=== PATIENT | male | born 1945 | race Caucasian/White ===

== ENCOUNTER 2021-06-14 14:38 | Inpatient (IN) ==
[2021-06-14 15:27] LABS: Eosinophils # 0.3 10*3/uL (0.0-0.87); Eosinophils % 3.4 % (0.00-10.9); Hemoglobin 10.5 GM/DL (14.0-18.0); Immature Granulocytes % 0.5 %; Immature Granulocytes Absolute 0.04 #; Lymphocytes # 0.5 10*3/uL (1.4-4.0); Lymphocytes % 6.4 % (21.2-54.2); Mean Corpuscular HGB Conc 31.8 GM/DL (32-36); Mean Corpuscular Volume 101.5 FL (87-102); Mean Platelet Volume 8.6 FL (9.6-12.0); Neutrophils % 83.7 % (38.7-73.9); Platelet Count 278 T/CUMM (130-400); Red Blood Count 3.25 MC/CUMM (3.8-5.5); Red Cell Distribution Width 14.7 % (9.3-17.3); White Blood Count 7.8 T/CUMM (4-12)
[2021-06-14 16:48] LABS: Alanine Aminotransferase 26 U/L (16-61); Albumin 2.5 G/DL (3.4-5.0); Alkaline Phosphatase 159 U/L (45-117); Aspartate Amino Transferase 35 U/L (0-37); Bilirubin,Total < 0.39 MG/DL (0.20-1.00); Blood Urea Nitrogen 71 MG/DL (7-18); Calcium 8.8 MG/DL (8.5-10.1); Carbon Dioxide 25 MMOL/L (21-32); Estimated Glom Filtration Rate 33 ML/MIN; Glucose 116 MG/DL (74-106); Osmolality,Calculated 287.4 MOS/KG (273-304); Potassium 5.9 MMOL/L (3.5-5.1); Sodium 133 MMOL/L (136-145); Total Protein 6.4 G/DL (6.4-8.2)
[2021-06-14] MEDS ORDERED: SODIUM CHLORIDE 0.9% 1,000 ML IV STA ×2 (17:33→18:42)
[2021-06-14] MEDS ORDERED: GLUCAGON 1 MG VIAL IM PRN (19:27)
[2021-06-14] MEDS ORDERED: SODIUM CHLORIDE 0.9% 1,000 ML IV SCH (19:30)
[2021-06-14] MEDS ORDERED: DEXTROSE 10% 250 ML BAG IV PRN (19:52)
[2021-06-14 20:25] LABS: Bilirubin,Urine Negative (Negative); Blood, Urine Negative (Negative); Glucose,Urine (UA) Negative (Negative); Ketones,Urine 5 mg/dL (Negative); Mucus,Urine Occasional /LPF (Occasional); Nitrite,Urine Negative (Negative); Protein,Urine Negative; RBC,Urine 1 /HPF (0-4); Urine Appearance CLOUDY (Clear); Urine Color Amber (Yellow); Urine Specific Gravity 1.013 (1.001-1.035); Urine Urobilinogen < 2.0 EU/DL (<2.0)
[2021-06-14 20:48] LABS: Calcium 8.8 MG/DL (8.5-10.1); Osmolality,Calculated 290.1 MOS/KG (273-304); Potassium 5.6 MMOL/L (3.5-5.1)
[2021-06-14] MEDS ORDERED: SODIUM POLYSTYRENE SULFATE 15 GM/60 ML BOTTLE PO ONE (21:18)
[2021-06-14] MEDS: APIXABAN 2.5 MG TABLET PO SCH (22:00)
[2021-06-15 05:46] LABS: Basophils % 0.2 % (0.0-0.8); Eosinophils # 0.3 10*3/uL (0.0-0.87); Eosinophils % 4.1 % (0.00-10.9); Hematocrit 31.2 VOL% (42.0-52.0); Hemoglobin 9.9 GM/DL (14.0-18.0); Immature Granulocytes % 0.6 %; Immature Granulocytes Absolute 0.04 #; Lymphocytes # 0.5 10*3/uL (1.4-4.0); Lymphocytes % 7.1 % (21.2-54.2); Mean Corpuscular HGB Conc 31.7 GM/DL (32-36); Mean Platelet Volume 8.9 FL (9.6-12.0); Monocytes % 6.8 % (1.7-12.7); NRBC # 0.02 10*3/uL; Neutrophils % 81.2 % (38.7-73.9); Platelet Count 264 T/CUMM (130-400); Red Blood Count 3.06 MC/CUMM (3.8-5.5); Red Cell Distribution Width 14.6 % (9.3-17.3); White Blood Count 6.5 T/CUMM (4-12)
[2021-06-15 06:04] LABS: Folate 20.88 NG/ML (5.38-24.0)
[2021-06-15 06:10] LABS: % Iron Saturation 11.2 % (18-50); Ferritin 121.9 ng/mL (26-388)
[2021-06-15 06:17] LABS: Alanine Aminotransferase 38 U/L (16-61); Alkaline Phosphatase 142 U/L (45-117); Aspartate Amino Transferase 30 U/L (0-37); Bilirubin,Total < 0.39 MG/DL (0.20-1.00); Blood Urea Nitrogen 54 MG/DL (7-18); Calcium 8.5 MG/DL (8.5-10.1); Carbon Dioxide 25 MMOL/L (21-32); Estimated Glom Filtration Rate 49 ML/MIN; Glucose 85 MG/DL (74-106); Osmolality,Calculated 288.7 MOS/KG (273-304); Potassium 5.2 MMOL/L (3.5-5.1); Sodium 138 MMOL/L (136-145)
[2021-06-15 06:31] LABS: Anisocytosis Slight; Platelet Estimate Normal
[2021-06-15 06:32] LABS: Macrocytosis 1+
[2021-06-15] MEDS ORDERED: SODIUM POLYSTYRENE SULFATE 15 GM/60 ML BOTTLE PO ONE (08:50)
[2021-06-15] MEDS: APIXABAN 2.5 MG TABLET PO SCH ×2 (10:53→20:58)
[2021-06-15] MEDS: SODIUM CHLORIDE 0.9% 1,000 ML IV SCH (10:56)
[2021-06-15 14:25] LABS: Calcium 8.6 MG/DL (8.5-10.1); Osmolality,Calculated 289.4 MOS/KG (273-304); Potassium 4.7 MMOL/L (3.5-5.1)
[2021-06-16] MEDS: SODIUM CHLORIDE 0.9% 1,000 ML IV SCH (05:41)
[2021-06-16 07:19] LABS: Eosinophils # 0.3 10*3/uL (0.0-0.87); Eosinophils % 5.7 % (0.00-10.9); Hematocrit 32.6 VOL% (42.0-52.0); Hemoglobin 10.4 GM/DL (14.0-18.0); Immature Granulocytes % 0.4 %; Immature Granulocytes Absolute 0.02 #; Lymphocytes # 0.6 10*3/uL (1.4-4.0); Lymphocytes % 11.3 % (21.2-54.2); Mean Corpuscular HGB Conc 31.9 GM/DL (32-36); Mean Corpuscular Volume 103.5 FL (87-102); Mean Platelet Volume 8.9 FL (9.6-12.0); Monocytes % 8.3 % (1.7-12.7); Neutrophils % 74.3 % (38.7-73.9); Platelet Count 269 T/CUMM (130-400); Red Blood Count 3.15 MC/CUMM (3.8-5.5); Red Cell Distribution Width 14.6 % (9.3-17.3); White Blood Count 5.3 T/CUMM (4-12)
[2021-06-16 07:53] LABS: Calcium 8.8 MG/DL (8.5-10.1); Osmolality,Calculated 286.3 MOS/KG (273-304); Potassium 3.9 MMOL/L (3.5-5.1)
[2021-06-16] MEDS: APIXABAN 2.5 MG TABLET PO SCH ×2 (08:32→21:35)
[2021-06-16] MEDS: lamoTRIgine 100 MG TABLET PO SCH (08:32)
[2021-06-16] MEDS ORDERED: DEXTROSE 50% 25 GM/50 ML VIAL IV PRN (08:47)
[2021-06-16] MEDS ORDERED: FERRIC GLUCONATE COMPLEX 125 MG in SODIUM CHLORIDE 0.9% 100 ML IV ONE (09:30)
[2021-06-16] MEDS: CARBIDOPA/LEVODOPA 25-250 MG TABLET PO SCH ×3 (14:57→21:35)
[2021-06-16] MEDS: DEXTROSE 5% NACL 0.45% 1,000 ML IV SCH (16:16)
[2021-06-16 18:29] LABS: Bacteria,Urine Occasional /HPF (Few); Bilirubin,Urine Negative (Negative); Blood, Urine Negative (Negative); Glucose,Urine (UA) Negative (Negative); Ketones,Urine 5 mg/dL (Negative); Mucus,Urine Occasional /LPF (Occasional); Nitrite,Urine Negative (Negative); Protein,Urine Negative; RBC,Urine 9 /HPF (0-4); Urine Appearance CLEAR (Clear); Urine Color Yellow (Yellow); Urine Specific Gravity 1.013 (1.001-1.035); Urine Urobilinogen < 2.0 EU/DL (<2.0)
[2021-06-16] MEDS ORDERED: ATORVASTATIN 20 MG TABLET PO SCH (21:00)
[2021-06-16] MEDS: PANTOPRAZOLE 40 MG TABLET PO SCH (21:35)
[2021-06-17 05:38] LABS: Eosinophils # 0.2 10*3/uL (0.0-0.87); Eosinophils % 4.3 % (0.00-10.9); Hematocrit 31.3 VOL% (42.0-52.0); Hemoglobin 10.1 GM/DL (14.0-18.0); Immature Granulocytes % 0.7 %; Immature Granulocytes Absolute 0.04 #; Lymphocytes # 0.6 10*3/uL (1.4-4.0); Lymphocytes % 10.4 % (21.2-54.2); Mean Corpuscular HGB Conc 32.3 GM/DL (32-36); Mean Corpuscular Volume 101.3 FL (87-102); Mean Platelet Volume 8.7 FL (9.6-12.0); Monocytes % 10.3 % (1.7-12.7); Neutrophils % 74.3 % (38.7-73.9); Platelet Count 268 T/CUMM (130-400); Red Blood Count 3.09 MC/CUMM (3.8-5.5); Red Cell Distribution Width 14.2 % (9.3-17.3); White Blood Count 5.4 T/CUMM (4-12)
[2021-06-17 05:54] LABS: Calcium 8.5 MG/DL (8.5-10.1); Osmolality,Calculated 282.7 MOS/KG (273-304); Potassium 3.7 MMOL/L (3.5-5.1)
[2021-06-17] MEDS: DEXTROSE 5% NACL 0.45% 1,000 ML IV SCH (09:00)
[2021-06-17] MEDS: lamoTRIgine 100 MG TABLET PO SCH (09:00)
[2021-06-17] MEDS: CARBIDOPA/LEVODOPA 25-250 MG TABLET PO SCH ×3 (09:00→18:26)
[2021-06-17] MEDS: PANTOPRAZOLE 40 MG TABLET PO SCH ×2 (09:00→21:16)
[2021-06-17] MEDS: APIXABAN 2.5 MG TABLET PO SCH ×2 (09:00→21:16)
[2021-06-17] MEDS ORDERED: ASPIRIN EC 81 MG TABLET PO SCH (09:00)
[2021-06-17] MEDS ORDERED: PANTOPRAZOLE 40 MG TABLET PO SCH (13:01)
[2021-06-17] MEDS ORDERED: ATORVASTATIN 20 MG TABLET PO SCH (21:00)
[2021-06-17] MEDS: CARBIDOPA/LEVODOPA 25-100 MG TABLET PO SCH (21:15)
[2021-06-17] MEDS: buPROPion SR 100 MG TABLET PO SCH (21:15)
[2021-06-17] MEDS: FERROUS SULFATE 300 MG/5 ML UDCUP PEG SCH (21:15)
[2021-06-17] MEDS: rOPINIRole 0.25 MG TABLET PO SCH (21:16)
[2021-06-18 05:57] LABS: Eosinophils # 0.3 10*3/uL (0.0-0.87); Eosinophils % 5.3 % (0.00-10.9); Hematocrit 30.7 VOL% (42.0-52.0); Immature Granulocytes % 0.4 %; Immature Granulocytes Absolute 0.02 #; Lymphocytes # 0.7 10*3/uL (1.4-4.0); Lymphocytes % 15.1 % (21.2-54.2); Mean Corpuscular HGB Conc 32.6 GM/DL (32-36); Mean Corpuscular Volume 99.4 FL (87-102); Mean Platelet Volume 8.5 FL (9.6-12.0); Monocytes % 8.6 % (1.7-12.7); Neutrophils % 70.6 % (38.7-73.9); Platelet Count 255 T/CUMM (130-400); Red Blood Count 3.09 MC/CUMM (3.8-5.5); Red Cell Distribution Width 14.2 % (9.3-17.3); White Blood Count 4.9 T/CUMM (4-12)
[2021-06-18 06:29] LABS: Calcium 8.2 MG/DL (8.5-10.1); Osmolality,Calculated 285.3 MOS/KG (273-304); Potassium 3.7 MMOL/L (3.5-5.1)
[2021-06-18] MEDS ORDERED: MAGNESIUM SULF RIDER 2 GM/50 ML PREMIX IV ONE (08:13)
[2021-06-18] MEDS ORDERED: LAMOTRIGINE 200 MG PO SCH (09:00)
[2021-06-18] MEDS ORDERED: CHOLECALCIFEROL 5,000 UNIT TABLET PO SCH (09:00)
[2021-06-18] MEDS ORDERED: ARIPiprazole 15 MG TABLET PO SCH (09:00)
[2021-06-18] MEDS ORDERED: MULTIVITAMIN (BEROCCA) TABLET PO SCH (09:00)
[2021-06-18] MEDS ORDERED: ASPIRIN EC 81 MG TABLET PO SCH (09:00)
[2021-06-18] MEDS: buPROPion SR 100 MG TABLET PO SCH (09:09)
[2021-06-18] MEDS: FERROUS SULFATE 300 MG/5 ML UDCUP PEG SCH (09:09)
[2021-06-18] MEDS: lamoTRIgine 100 MG TABLET PO SCH (09:09)
[2021-06-18] MEDS: rOPINIRole 0.25 MG TABLET PO SCH (09:10)
[2021-06-18] MEDS: PANTOPRAZOLE 40 MG TABLET PO SCH (09:10)
[2021-06-18] MEDS: APIXABAN 2.5 MG TABLET PO SCH (09:10)
[2021-06-18] MEDS: CARBIDOPA/LEVODOPA 25-100 MG TABLET PO SCH ×2 (09:10→13:43)
[2021-06-18] MEDS: DEXTROSE 5% NACL 0.45% 1,000 ML IV SCH (09:11)
[2021-06-18 12:24] VITALS: BP 102/65
== END 2021-06-18 14:38 | disposition swing bed (61) | DRG 683 ==
LOC: N.ED 14:38 → N.5E 14:38
PROVIDERS: ADMIT Internal Medicine; ATTEND Internal Medicine

== ENCOUNTER 2021-10-04 08:41 | Inpatient (IN) ==
[2021-10-04] MEDS ORDERED: SODIUM CHLORIDE 0.9% 1,000 ML IV STA (09:26)
[2021-10-04] MEDS ORDERED: PIPERACILLIN/TAZOBACTAM 3,375 MG in SODIUM CHLORIDE 0.9% 100 ML IV STA (09:28)
[2021-10-04 09:59] LABS: Basophils % 0.1 % (0.0-0.8); Eosinophils # 0.1 10*3/uL (0.0-0.87); Eosinophils % 0.5 % (0.00-10.9); Hematocrit 41.7 VOL% (42.0-52.0); Hemoglobin 13.7 GM/DL (14.0-18.0); Immature Granulocytes % 0.5 %; Immature Granulocytes Absolute 0.06 #; Lymphocytes # 0.4 10*3/uL (1.4-4.0); Lymphocytes % 2.9 % (21.2-54.2); Mean Corpuscular HGB Conc 32.9 GM/DL (32-36); Mean Corpuscular Volume 98.3 FL (87-102); Mean Platelet Volume 8.5 FL (9.6-12.0); Monocytes # 0.6 10*3/uL (0.11-0.8); Monocytes % 4.5 % (1.7-12.7); Neutrophils % 91.5 % (38.7-73.9); Platelet Count 226 T/CUMM (130-400); Red Blood Count 4.24 MC/CUMM (3.8-5.5); Red Cell Distribution Width 15.2 % (9.3-17.3); White Blood Count 13.1 T/CUMM (4-12)
[2021-10-04 10:34] LABS: Bilirubin,Urine Negative (Negative); Blood, Urine Negative (Negative); Glucose,Urine (UA) Negative (Negative); Ketones,Urine Negative (Negative); Nitrite,Urine Negative (Negative); Protein,Urine Negative (Negative); Urine Appearance Clear (Clear); Urine Color Yellow (Yellow); Urine Urobilinogen 0.2 eU/dL (<2.0); Urine pH 7.5 (4.5-8.0)
[2021-10-04 10:34] LABS: Albumin 3.2 G/DL (3.4-5.0); Bilirubin,Total 0.6 MG/DL (0.20-1.00); Calcium 9.5 MG/DL (8.5-10.1); Osmolality,Calculated 276.8 MOS/KG (273-304); Potassium 4.8 MMOL/L (3.5-5.1); Total Protein 7.1 G/DL (6.4-8.2)
[2021-10-04 10:46] LABS: Bacteria,Urine Occasional /HPF (Few); Mucus,Urine Occasional /LPF (Occasional); RBC,Urine 4 /HPF (0-4)
[2021-10-04 10:47] LABS: Band Neutrophils 6 % (0-10); Lymphocytes 6 % (20-55); Microcytosis Slight; Total Cells Counted 100
[2021-10-04] MEDS ORDERED: ACETAMINOPHEN 325 MG TABLET PO PRN (11:36)
[2021-10-04] MEDS ORDERED: ONDANSETRON 4 MG/2 ML VIAL IV PRN (11:36)
[2021-10-04] MEDS ORDERED: GLUCAGON 1 MG VIAL IM PRN (11:36)
[2021-10-04] MEDS ORDERED: oxyCODONE IR 5 MG TABLET PO PRN (11:41)
[2021-10-04] MEDS ORDERED: DEXTROSE 10% 250 ML BAG IV PRN (11:44)
[2021-10-04] MEDS ORDERED: ALBUTEROL/IPRATROPIUM 3 ML NEB RESP TX PRN (11:54)
[2021-10-04 12:18] LABS: Thyroid Stimulating Hormone 1.67 uIU/ml (0.358-3.74)
[2021-10-04] MEDS: DOXYCYCLINE HYCLATE INJ 100 MG in SODIUM CHLORIDE 0.9% 100 ML IV SCH (12:41)
[2021-10-04] MEDS: LACTATED RINGERS 1,000 ML IV SCH (13:58)
[2021-10-04] MEDS: PIPERACILLIN/TAZOBACTAM 3,375 MG in SODIUM CHLORIDE 0.9% 100 ML IV SCH (18:12)
[2021-10-04] MEDS: MELATONIN 3 MG TABLET PO SCH (20:25)
[2021-10-04] MEDS: CARBIDOPA/LEVODOPA 25-100 MG TABLET PO SCH (20:25)
[2021-10-04] MEDS: ATORVASTATIN 20 MG TABLET PO SCH (20:26)
[2021-10-04] MEDS: DOCUSATE SODIUM 100 MG CAPSULE PO SCH (20:26)
[2021-10-05] MEDS: DOXYCYCLINE HYCLATE INJ 100 MG in SODIUM CHLORIDE 0.9% 100 ML IV SCH ×3 (01:26→23:57)
[2021-10-05] MEDS: CARBIDOPA/LEVODOPA 25-100 MG TABLET PO SCH ×5 (02:02→20:27)
[2021-10-05] MEDS: PIPERACILLIN/TAZOBACTAM 3,375 MG in SODIUM CHLORIDE 0.9% 100 ML IV SCH ×3 (02:29→17:11)
[2021-10-05 06:25] LABS: Basophils % 0.1 % (0.0-0.8); Eosinophils # 0.5 10*3/uL (0.0-0.87); Eosinophils % 3.9 % (0.00-10.9); Hematocrit 31.4 VOL% (42.0-52.0); Hemoglobin 10.1 GM/DL (14.0-18.0); Immature Granulocytes % 0.5 %; Immature Granulocytes Absolute 0.06 #; Lymphocytes # 0.5 10*3/uL (1.4-4.0); Lymphocytes % 4.3 % (21.2-54.2); Mean Corpuscular HGB Conc 32.2 GM/DL (32-36); Mean Platelet Volume 8.8 FL (9.6-12.0); Monocytes # 0.6 10*3/uL (0.11-0.8); Neutrophils % 86.2 % (38.7-73.9); Platelet Count 181 T/CUMM (130-400); Red Blood Count 3.11 MC/CUMM (3.8-5.5); Red Cell Distribution Width 15.2 % (9.3-17.3); White Blood Count 12.3 T/CUMM (4-12)
[2021-10-05 06:44] LABS: Osmolality,Calculated 281.4 MOS/KG (273-304); Potassium 3.8 MMOL/L (3.5-5.1)
[2021-10-05 06:45] LABS: Platelet Estimate Normal
[2021-10-05 06:46] LABS: Anisocytosis 1+; Macrocytosis Slight
[2021-10-05] MEDS: ARIPiprazole 15 MG TABLET PO SCH (09:00)
[2021-10-05] MEDS: DOCUSATE SODIUM 100 MG CAPSULE PO SCH ×2 (09:00→20:27)
[2021-10-05] MEDS ORDERED: FLUTICASONE FUROATE BOTH NARES SCH (09:00)
[2021-10-05] MEDS ORDERED: FLUoxetine 20 MG CAPSULE PO SCH (09:00)
[2021-10-05] MEDS: lamoTRIgine 100 MG TABLET PO SCH (09:00)
[2021-10-05] MEDS: POLYETHYLENE GLYCOL POWDER 17 GM PACK PO SCH (09:00)
[2021-10-05] MEDS: ASPIRIN CHEW 81 MG TABLET PO SCH (09:00)
[2021-10-05] MEDS ORDERED: [UNRECOGNIZED DRUG - MIXTURE] PO SCH (09:00)
[2021-10-05] MEDS: LACTATED RINGERS 1,000 ML IV SCH ×2 (14:21→17:25)
[2021-10-05] MEDS: ATORVASTATIN 20 MG TABLET PO SCH (20:27)
[2021-10-05] MEDS: MELATONIN 3 MG TABLET PO SCH (20:27)
[2021-10-06] MEDS: PIPERACILLIN/TAZOBACTAM 3,375 MG in SODIUM CHLORIDE 0.9% 100 ML IV SCH ×3 (02:08→17:31)
[2021-10-06] MEDS: CARBIDOPA/LEVODOPA 25-100 MG TABLET PO SCH ×4 (05:57→21:31)
[2021-10-06 06:31] LABS: Basophils % 0.2 % (0.0-0.8); Eosinophils # 0.4 10*3/uL (0.0-0.87); Eosinophils % 4.4 % (0.00-10.9); Hematocrit 32.3 VOL% (42.0-52.0); Hemoglobin 10.6 GM/DL (14.0-18.0); Immature Granulocytes % 0.3 %; Immature Granulocytes Absolute 0.03 #; Lymphocytes # 0.5 10*3/uL (1.4-4.0); Lymphocytes % 4.7 % (21.2-54.2); Mean Corpuscular HGB Conc 32.8 GM/DL (32-36); Mean Corpuscular Volume 98.8 FL (87-102); Mean Platelet Volume 8.9 FL (9.6-12.0); Monocytes # 0.6 10*3/uL (0.11-0.8); Monocytes % 6.6 % (1.7-12.7); Neutrophils % 83.8 % (38.7-73.9); Platelet Count 221 T/CUMM (130-400); Red Blood Count 3.27 MC/CUMM (3.8-5.5); Red Cell Distribution Width 14.8 % (9.3-17.3); White Blood Count 9.7 T/CUMM (4-12)
[2021-10-06 06:40] LABS: Calcium 9.1 MG/DL (8.5-10.1); Osmolality,Calculated 279.5 MOS/KG (273-304); Potassium 3.9 MMOL/L (3.5-5.1)
[2021-10-06 06:53] LABS: Anisocytosis Slight; Band Neutrophils 2 % (0-10); Eosinophils 4 % (0-10); Lymphocytes 5 % (20-55); Ovalocytes Few; Platelet Estimate Normal; Total Cells Counted 100
[2021-10-06] MEDS: ASPIRIN CHEW 81 MG TABLET PO SCH (09:30)
[2021-10-06] MEDS: DOCUSATE SODIUM 100 MG CAPSULE PO SCH ×2 (09:30→21:31)
[2021-10-06] MEDS: POLYETHYLENE GLYCOL POWDER 17 GM PACK PO SCH (09:30)
[2021-10-06] MEDS: ARIPiprazole 15 MG TABLET PO SCH (09:30)
[2021-10-06] MEDS: lamoTRIgine 100 MG TABLET PO SCH (09:30)
[2021-10-06] MEDS: LACTATED RINGERS 1,000 ML IV SCH ×2 (13:23→17:44)
[2021-10-06] MEDS: ATORVASTATIN 20 MG TABLET PO SCH (21:31)
[2021-10-06] MEDS: MELATONIN 3 MG TABLET PO SCH (21:31)
[2021-10-07] MEDS: PIPERACILLIN/TAZOBACTAM 3,375 MG in SODIUM CHLORIDE 0.9% 100 ML IV SCH ×2 (02:46→10:55)
[2021-10-07 06:17] LABS: Basophils % 0.1 % (0.0-0.8); Eosinophils # 0.4 10*3/uL (0.0-0.87); Eosinophils % 5.1 % (0.00-10.9); Hematocrit 33.2 VOL% (42.0-52.0); Hemoglobin 10.8 GM/DL (14.0-18.0); Immature Granulocytes % 0.4 %; Immature Granulocytes Absolute 0.03 #; Lymphocytes # 0.5 10*3/uL (1.4-4.0); Lymphocytes % 6.8 % (21.2-54.2); Mean Corpuscular HGB Conc 32.5 GM/DL (32-36); Mean Platelet Volume 9.1 FL (9.6-12.0); Monocytes # 0.6 10*3/uL (0.11-0.8); Monocytes % 7.8 % (1.7-12.7); Neutrophils % 79.8 % (38.7-73.9); Platelet Count 187 T/CUMM (130-400); Red Blood Count 3.32 MC/CUMM (3.8-5.5); White Blood Count 7.9 T/CUMM (4-12)
[2021-10-07] MEDS: CARBIDOPA/LEVODOPA 25-100 MG TABLET PO SCH ×2 (06:25→10:56)
[2021-10-07 06:38] LABS: Calcium 9.1 MG/DL (8.5-10.1); Osmolality,Calculated 278.5 MOS/KG (273-304); Potassium 3.8 MMOL/L (3.5-5.1)
[2021-10-07] MEDS: lamoTRIgine 100 MG TABLET PO SCH (10:56)
[2021-10-07] MEDS: POLYETHYLENE GLYCOL POWDER 17 GM PACK PO SCH (10:56)
[2021-10-07] MEDS: ARIPiprazole 15 MG TABLET PO SCH (10:57)
[2021-10-07] MEDS: DOCUSATE SODIUM 100 MG CAPSULE PO SCH (10:57)
[2021-10-07] MEDS: ASPIRIN CHEW 81 MG TABLET PO SCH (10:57)
[2021-10-07 12:05] VITALS: BP 125/65
== END 2021-10-07 13:50 | disposition home health service (06) | DRG 179 ==
LOC: N.ED 08:41 → N.EDINP 11:36 → SUATTDRO 11:36 → N.5E 12:46
PROVIDERS: ADMIT Internal Medicine; ATTEND Emergency Medicine

== ENCOUNTER 2021-10-08 16:46 | Inpatient (IN) ==
[2021-10-08] MEDS ORDERED: ONDANSETRON 4 MG/2 ML VIAL IV STA (18:15)
[2021-10-08] MEDS ORDERED: PIPERACILLIN/TAZOBACTAM 3,375 MG in SODIUM CHLORIDE 0.9% 100 ML IV STA (18:15)
[2021-10-08] MEDS ORDERED: SODIUM CHLORIDE 0.9% 500 ML IV STA (18:15)
[2021-10-08] MEDS ORDERED: ALBUTEROL/IPRATROPIUM 3 ML NEB RESP TX STA ×2 (18:15→20:35)
[2021-10-08 19:20] LABS: Eosinophils % 0.1 % (0.00-10.9); Hematocrit 35.6 VOL% (42.0-52.0); Hemoglobin 11.6 GM/DL (14.0-18.0); Immature Granulocytes % 0.4 %; Immature Granulocytes Absolute 0.03 #; Lymphocytes # 0.3 10*3/uL (1.4-4.0); Lymphocytes % 4.4 % (21.2-54.2); Mean Corpuscular HGB Conc 32.6 GM/DL (32-36); Mean Corpuscular Volume 99.2 FL (87-102); Mean Platelet Volume 8.5 FL (9.6-12.0); Monocytes # 0.2 10*3/uL (0.11-0.8); Neutrophils % 92.1 % (38.7-73.9); Platelet Count 215 T/CUMM (130-400); Red Blood Count 3.59 MC/CUMM (3.8-5.5); Red Cell Distribution Width 14.6 % (9.3-17.3); White Blood Count 6.8 T/CUMM (4-12)
[2021-10-08 19:41] LABS: Band Neutrophils 1 % (0-10); Lymphocytes 6 % (20-55)
[2021-10-08 19:42] LABS: Platelet Estimate Increased; Total Cells Counted 100
[2021-10-08 19:43] LABS: Alanine Aminotransferase 21 U/L (16-61); Albumin 2.4 G/DL (3.4-5.0); Alkaline Phosphatase 96 U/L (45-117); Aspartate Amino Transferase 15 U/L (0-37); Bilirubin,Total < 0.39 MG/DL (0.20-1.00); Blood Urea Nitrogen 20 MG/DL (7-18); Calcium 8.8 MG/DL (8.5-10.1); Carbon Dioxide 27 MMOL/L (21-32); Chloride 107 MMOL/L (98-107); Estimated Glom Filtration Rate 83 ML/MIN; Glucose 105 MG/DL (74-106); Osmolality,Calculated 277.7 MOS/KG (273-304); Potassium 4.6 MMOL/L (3.5-5.1); Sodium 138 MMOL/L (136-145); Total Protein 6.8 G/DL (6.4-8.2)
[2021-10-09] MEDS ORDERED: GLUCAGON 1 MG VIAL IM PRN (00:12)
[2021-10-09] MEDS ORDERED: diphenhydrAMINE CAP 25 MG CAPSULE PO PRN (00:12)
[2021-10-09] MEDS ORDERED: NICOTINE 21 MG/24 HR PATCH TRANSDERM PRN (00:12)
[2021-10-09] MEDS ORDERED: ONDANSETRON 4 MG/2 ML VIAL IV PRN (00:12)
[2021-10-09] MEDS ORDERED: hydrALAZINE 20 MG/1 ML VIAL IV PRN (00:12)
[2021-10-09] MEDS ORDERED: DEXTROSE 10% 250 ML BAG IV PRN (00:12)
[2021-10-09] MEDS ORDERED: ACETAMINOPHEN 325 MG TABLET PO PRN (00:12)
[2021-10-09] MEDS ORDERED: ZALEPLON 5 MG CAPSULE PO PRN (00:12)
[2021-10-09] MEDS ORDERED: guaiFENesin/DM ER 600-30 MG TABLET PO PRN (00:12)
[2021-10-09] MEDS ORDERED: DOXYCYCLINE HYCLATE INJ 100 MG in SODIUM CHLORIDE 0.9% 100 ML IV SCH (01:00)
[2021-10-09] MEDS: ALBUTEROL/IPRATROPIUM 3 ML NEB RESP TX SCH ×4 (04:40→19:40)
[2021-10-09 04:47] LABS: Basophils % 0.2 % (0.0-0.8); Eosinophils # 0.1 10*3/uL (0.0-0.87); Eosinophils % 2.8 % (0.00-10.9); Hematocrit 30.6 VOL% (42.0-52.0); Hemoglobin 9.9 GM/DL (14.0-18.0); Immature Granulocytes % 0.4 %; Immature Granulocytes Absolute 0.02 #; Lymphocytes # 0.6 10*3/uL (1.4-4.0); Mean Corpuscular HGB Conc 32.4 GM/DL (32-36); Mean Platelet Volume 8.5 FL (9.6-12.0); Monocytes # 0.4 10*3/uL (0.11-0.8); Monocytes % 8.5 % (1.7-12.7); Neutrophils % 76.1 % (38.7-73.9); Platelet Count 205 T/CUMM (130-400); Red Blood Count 3.09 MC/CUMM (3.8-5.5); Red Cell Distribution Width 14.8 % (9.3-17.3); White Blood Count 5.1 T/CUMM (4-12)
[2021-10-09 05:08] LABS: Calcium 8.6 MG/DL (8.5-10.1); Osmolality,Calculated 281.3 MOS/KG (273-304); Potassium 3.8 MMOL/L (3.5-5.1)
[2021-10-09] MEDS ORDERED: FLUoxetine 20 MG CAPSULE PO SCH (09:00)
[2021-10-09] MEDS ORDERED: ASPIRIN CHEW 81 MG TABLET PO SCH (09:00)
[2021-10-09] MEDS ORDERED: PANTOPRAZOLE 40 MG TABLET PO SCH (09:00)
[2021-10-09] MEDS ORDERED: ARIPiprazole 15 MG TABLET PO SCH (09:00)
[2021-10-09] MEDS: HEPARIN 5,000 UNIT/1 ML VIAL SUBCUT SCH ×2 (09:35→21:02)
[2021-10-09] MEDS: ARIPiprazole 15 MG TABLET PEG SCH (14:58)
[2021-10-09] MEDS: DOXYCYCLINE HYCLATE INJ 100 MG in SODIUM CHLORIDE 0.9% 100 ML IV SCH (14:59)
[2021-10-09] MEDS ORDERED: AMOXICILLIN/CLAV 875 MG TABLET PO SCH (21:00)
[2021-10-09] MEDS: ATORVASTATIN 20 MG TABLET PO SCH (21:01)
[2021-10-09] MEDS: CARBIDOPA/LEVODOPA 25-100 MG TABLET PO SCH (21:01)
[2021-10-10] MEDS: ALBUTEROL/IPRATROPIUM 3 ML NEB RESP TX SCH ×4 (00:45→19:15)
[2021-10-10] MEDS: DOXYCYCLINE HYCLATE INJ 100 MG in SODIUM CHLORIDE 0.9% 100 ML IV SCH ×2 (02:30→17:02)
[2021-10-10] MEDS ORDERED: AZITHROMYCIN 250 MG TABLET PO SCH (09:00)
[2021-10-10] MEDS: ASPIRIN CHEW 81 MG TABLET PO SCH (09:19)
[2021-10-10] MEDS: ARIPiprazole 15 MG TABLET PEG SCH (09:19)
[2021-10-10] MEDS: OMEPRAZOLE ODT 20 MG TABLET PER TUBE SCH (09:19)
[2021-10-10 09:28] LABS: Basophils % 0.1 % (0.0-0.8); Eosinophils # 0.2 10*3/uL (0.0-0.87); Eosinophils % 3.1 % (0.00-10.9); Hematocrit 32.2 VOL% (42.0-52.0); Hemoglobin 10.4 GM/DL (14.0-18.0); Immature Granulocytes % 0.5 %; Immature Granulocytes Absolute 0.04 #; Lymphocytes # 0.5 10*3/uL (1.4-4.0); Lymphocytes % 7.1 % (21.2-54.2); Mean Corpuscular HGB Conc 32.3 GM/DL (32-36); Mean Corpuscular Volume 99.4 FL (87-102); Mean Platelet Volume 8.4 FL (9.6-12.0); Monocytes # 0.5 10*3/uL (0.11-0.8); Monocytes % 6.4 % (1.7-12.7); Neutrophils % 82.8 % (38.7-73.9); Platelet Count 204 T/CUMM (130-400); Red Blood Count 3.24 MC/CUMM (3.8-5.5); Red Cell Distribution Width 14.6 % (9.3-17.3); White Blood Count 7.5 T/CUMM (4-12)
[2021-10-10] MEDS: HEPARIN 5,000 UNIT/1 ML VIAL SUBCUT SCH (09:43)
[2021-10-10 09:56] LABS: Alanine Aminotransferase 16 U/L (16-61); Albumin 2.1 G/DL (3.4-5.0); Alkaline Phosphatase 80 U/L (45-117); Aspartate Amino Transferase 11 U/L (0-37); Bilirubin,Total < 0.39 MG/DL (0.20-1.00); Blood Urea Nitrogen 18 MG/DL (7-18); Calcium 9.1 MG/DL (8.5-10.1); Carbon Dioxide 29 MMOL/L (21-32); Chloride 107 MMOL/L (98-107); Estimated Glom Filtration Rate 83 ML/MIN; Glucose 116 MG/DL (74-106); Osmolality,Calculated 277.7 MOS/KG (273-304); Potassium 4.6 MMOL/L (3.5-5.1); Sodium 138 MMOL/L (136-145); Total Protein 5.8 G/DL (6.4-8.2)
[2021-10-10] MEDS: VANCOMYCIN INJ 1,000 MG in SODIUM CHLORIDE 0.9% 250 ML IV SCH (14:44)
[2021-10-10] MEDS: ENOXAPARIN 40 MG/0.4 ML SYRINGE SUBCUT SCH (14:45)
[2021-10-10] MEDS: CARBIDOPA/LEVODOPA 25-100 MG TABLET PO SCH (22:37)
[2021-10-10] MEDS: ATORVASTATIN 20 MG TABLET PO SCH (22:37)
[2021-10-11] MEDS: VANCOMYCIN INJ 1,000 MG in SODIUM CHLORIDE 0.9% 250 ML IV SCH (00:52)
[2021-10-11] MEDS: ALBUTEROL/IPRATROPIUM 3 ML NEB RESP TX SCH ×4 (00:55→19:35)
[2021-10-11] MEDS: DOXYCYCLINE HYCLATE INJ 100 MG in SODIUM CHLORIDE 0.9% 100 ML IV SCH ×2 (03:30→15:12)
[2021-10-11 05:15] LABS: Basophils % 0.1 % (0.0-0.8); Eosinophils # 0.3 10*3/uL (0.0-0.87); Eosinophils % 3.9 % (0.00-10.9); Hematocrit 34.6 VOL% (42.0-52.0); Hemoglobin 11.1 GM/DL (14.0-18.0); Immature Granulocytes % 0.5 %; Immature Granulocytes Absolute 0.04 #; Lymphocytes # 0.7 10*3/uL (1.4-4.0); Lymphocytes % 9.1 % (21.2-54.2); Mean Corpuscular HGB Conc 32.1 GM/DL (32-36); Mean Corpuscular Volume 98.6 FL (87-102); Mean Platelet Volume 8.4 FL (9.6-12.0); Monocytes # 0.5 10*3/uL (0.11-0.8); Monocytes % 6.9 % (1.7-12.7); Neutrophils % 79.5 % (38.7-73.9); Platelet Count 224 T/CUMM (130-400); Red Blood Count 3.51 MC/CUMM (3.8-5.5); Red Cell Distribution Width 14.6 % (9.3-17.3); White Blood Count 7.7 T/CUMM (4-12)
[2021-10-11 05:33] LABS: Albumin 2.4 G/DL (3.4-5.0); Bilirubin,Total 0.4 MG/DL (0.20-1.00); Calcium 9.3 MG/DL (8.5-10.1); Osmolality,Calculated 282.3 MOS/KG (273-304); Potassium 4.7 MMOL/L (3.5-5.1); Total Protein 6.4 G/DL (6.4-8.2)
[2021-10-11] MEDS: ARIPiprazole 15 MG TABLET PEG SCH (10:06)
[2021-10-11] MEDS: ASPIRIN CHEW 81 MG TABLET PO SCH (10:06)
[2021-10-11] MEDS: OMEPRAZOLE ODT 20 MG TABLET PER TUBE SCH (10:07)
[2021-10-11] MEDS: ENOXAPARIN 40 MG/0.4 ML SYRINGE SUBCUT SCH (10:09)
[2021-10-11] MEDS ORDERED: DEXTROSE 10% 250 ML BAG IV PRN (16:16)
[2021-10-11] MEDS ORDERED: VANCOMYCIN INJ 1,000 MG in SODIUM CHLORIDE 0.9% 250 ML IV SCH (21:00)
[2021-10-11] MEDS: CARBIDOPA/LEVODOPA 25-100 MG TABLET PO SCH (21:51)
[2021-10-11] MEDS: ATORVASTATIN 20 MG TABLET PO SCH (21:51)
[2021-10-12] MEDS: ALBUTEROL/IPRATROPIUM 3 ML NEB RESP TX SCH ×4 (00:27→19:40)
[2021-10-12] MEDS: DOXYCYCLINE HYCLATE INJ 100 MG in SODIUM CHLORIDE 0.9% 100 ML IV SCH ×2 (03:11→15:41)
[2021-10-12 05:31] LABS: Basophils % 0.1 % (0.0-0.8); Eosinophils # 0.2 10*3/uL (0.0-0.87); Hematocrit 33.4 VOL% (42.0-52.0); Immature Granulocytes % 0.4 %; Immature Granulocytes Absolute 0.03 #; Lymphocytes # 0.6 10*3/uL (1.4-4.0); Lymphocytes % 8.3 % (21.2-54.2); Mean Corpuscular HGB Conc 32.9 GM/DL (32-36); Mean Corpuscular Volume 97.9 FL (87-102); Mean Platelet Volume 8.6 FL (9.6-12.0); Monocytes # 0.6 10*3/uL (0.11-0.8); Neutrophils % 80.2 % (38.7-73.9); Platelet Count 237 T/CUMM (130-400); Red Blood Count 3.41 MC/CUMM (3.8-5.5); Red Cell Distribution Width 14.6 % (9.3-17.3); White Blood Count 7.3 T/CUMM (4-12)
[2021-10-12 05:54] LABS: Alanine Aminotransferase 13 U/L (16-61); Albumin 2.3 G/DL (3.4-5.0); Alkaline Phosphatase 82 U/L (45-117); Aspartate Amino Transferase 15 U/L (0-37); Bilirubin,Total < 0.39 MG/DL (0.20-1.00); Blood Urea Nitrogen 24 MG/DL (7-18); Calcium 9.6 MG/DL (8.5-10.1); Carbon Dioxide 27 MMOL/L (21-32); Chloride 104 MMOL/L (98-107); Glucose 86 MG/DL (74-106); Osmolality,Calculated 277.7 MOS/KG (273-304); Potassium 4.5 MMOL/L (3.5-5.1); Sodium 138 MMOL/L (136-145); Total Protein 6.3 G/DL (6.4-8.2)
[2021-10-12] MEDS: ASPIRIN CHEW 81 MG TABLET PO SCH (09:30)
[2021-10-12] MEDS: ARIPiprazole 15 MG TABLET PEG SCH (09:30)
[2021-10-12] MEDS: OMEPRAZOLE ODT 20 MG TABLET PER TUBE SCH (09:30)
[2021-10-12] MEDS: ENOXAPARIN 40 MG/0.4 ML SYRINGE SUBCUT SCH (09:41)
[2021-10-12] MEDS ORDERED: BISACODYL 10 MG SUPP RECTAL PRN (12:33)
[2021-10-12] MEDS ORDERED: BISACODYL 10 MG SUPP RECTAL ONE (12:33)
[2021-10-12] MEDS: ATORVASTATIN 20 MG TABLET PO SCH (23:50)
[2021-10-12] MEDS: CARBIDOPA/LEVODOPA 25-100 MG TABLET PO SCH (23:50)
[2021-10-13] MEDS: DOXYCYCLINE HYCLATE INJ 100 MG in SODIUM CHLORIDE 0.9% 100 ML IV SCH ×2 (03:29→15:09)
[2021-10-13 05:16] LABS: Basophils % 0.1 % (0.0-0.8); Eosinophils # 0.3 10*3/uL (0.0-0.87); Eosinophils % 3.4 % (0.00-10.9); Hematocrit 33.6 VOL% (42.0-52.0); Hemoglobin 11.1 GM/DL (14.0-18.0); Immature Granulocytes % 0.4 %; Immature Granulocytes Absolute 0.03 #; Lymphocytes # 0.6 10*3/uL (1.4-4.0); Lymphocytes % 8.4 % (21.2-54.2); Mean Corpuscular Volume 97.7 FL (87-102); Mean Platelet Volume 8.4 FL (9.6-12.0); Monocytes # 0.5 10*3/uL (0.11-0.8); Monocytes % 6.8 % (1.7-12.7); Neutrophils % 80.9 % (38.7-73.9); Platelet Count 241 T/CUMM (130-400); Red Blood Count 3.44 MC/CUMM (3.8-5.5); Red Cell Distribution Width 14.6 % (9.3-17.3); White Blood Count 7.4 T/CUMM (4-12)
[2021-10-13 05:42] LABS: Alanine Aminotransferase < 9 U/L (16-61); Albumin 2.4 G/DL (3.4-5.0); Alkaline Phosphatase 85 U/L (45-117); Aspartate Amino Transferase 14 U/L (0-37); Bilirubin,Total < 0.39 MG/DL (0.20-1.00); Blood Urea Nitrogen 25 MG/DL (7-18); Calcium 8.8 MG/DL (8.5-10.1); Carbon Dioxide 28 MMOL/L (21-32); Chloride 106 MMOL/L (98-107); Glucose 95 MG/DL (74-106); Osmolality,Calculated 282.4 MOS/KG (273-304); Potassium 4.3 MMOL/L (3.5-5.1); Sodium 140 MMOL/L (136-145); Total Protein 6.4 G/DL (6.4-8.2)
[2021-10-13] MEDS: ALBUTEROL/IPRATROPIUM 3 ML NEB RESP TX SCH ×5 (07:20→23:44)
[2021-10-13] MEDS: ASPIRIN CHEW 81 MG TABLET PO SCH (09:08)
[2021-10-13] MEDS: ARIPiprazole 15 MG TABLET PEG SCH (09:08)
[2021-10-13] MEDS: ENOXAPARIN 40 MG/0.4 ML SYRINGE SUBCUT SCH (09:08)
[2021-10-13] MEDS: POLYETHYLENE GLYCOL POWDER 17 GM PACK PO SCH (09:08)
[2021-10-13] MEDS: OMEPRAZOLE ODT 20 MG TABLET PER TUBE SCH (09:08)
[2021-10-13] MEDS: CARBIDOPA/LEVODOPA 25-100 MG TABLET PO SCH (23:34)
[2021-10-13] MEDS: ATORVASTATIN 20 MG TABLET PO SCH (23:34)
[2021-10-14] MEDS: DOXYCYCLINE HYCLATE INJ 100 MG in SODIUM CHLORIDE 0.9% 100 ML IV SCH (02:42)
[2021-10-14 05:34] LABS: Calcium 9.4 MG/DL (8.5-10.1); Osmolality,Calculated 284.4 MOS/KG (273-304); Phosphorous 3.6 MG/DL (2.5-4.9); Potassium 4.9 MMOL/L (3.5-5.1)
[2021-10-14] MEDS: ALBUTEROL/IPRATROPIUM 3 ML NEB RESP TX SCH (07:20)
[2021-10-14] MEDS: POLYETHYLENE GLYCOL POWDER 17 GM PACK PO SCH (08:56)
[2021-10-14] MEDS: ASPIRIN CHEW 81 MG TABLET PO SCH (08:56)
[2021-10-14] MEDS: OMEPRAZOLE ODT 20 MG TABLET PER TUBE SCH (08:56)
[2021-10-14] MEDS: ARIPiprazole 15 MG TABLET PEG SCH (08:56)
[2021-10-14] MEDS: ENOXAPARIN 40 MG/0.4 ML SYRINGE SUBCUT SCH (09:02)
[2021-10-14 11:47] VITALS: BP 100/61
== END 2021-10-14 14:43 | disposition swing bed (61) | DRG 391 ==
LOC: N.EDINP 16:46 → N.ED 16:46 → SUATTDRO 10-09 00:12 → N.5E 10-09 09:33 → SUATTDRO 10-11 10:52
PROVIDERS: ADMIT Internal Medicine; ATTEND Internal Medicine

== ENCOUNTER 2021-10-28 14:09 | Inpatient (IN) ==
[2021-10-28] MEDS ORDERED: SODIUM CHLORIDE 0.9% 1,000 ML IV STA (14:36)
[2021-10-28 15:21] LABS: Basophils % 0.1 % (0.0-0.8); Hematocrit 35.4 VOL% (42.0-52.0); Hemoglobin 11.7 GM/DL (14.0-18.0); Immature Granulocytes % 0.5 %; Immature Granulocytes Absolute 0.04 #; Lymphocytes # 0.4 10*3/uL (1.4-4.0); Lymphocytes % 5.2 % (21.2-54.2); Mean Corpuscular HGB Conc 33.1 GM/DL (32-36); Mean Corpuscular Volume 96.7 FL (87-102); Mean Platelet Volume 8.5 FL (9.6-12.0); Monocytes # 0.4 10*3/uL (0.11-0.8); Monocytes % 4.8 % (1.7-12.7); Neutrophils % 89.4 % (38.7-73.9); Platelet Count 299 T/CUMM (130-400); Red Blood Count 3.66 MC/CUMM (3.8-5.5); Red Cell Distribution Width 14.4 % (9.3-17.3); White Blood Count 7.5 T/CUMM (4-12)
[2021-10-28 15:39] LABS: Bilirubin,Total 0.4 MG/DL (0.20-1.00); Calcium 9.2 MG/DL (8.5-10.1); Osmolality,Calculated 279.8 MOS/KG (273-304); Potassium 4.2 MMOL/L (3.5-5.1)
[2021-10-28 15:55] LABS: Bilirubin,Urine Negative (Negative); Blood, Urine Negative (Negative); Glucose,Urine (UA) Negative (Negative); Hyaline Casts,Urine 1 /LPF (0-3); Ketones,Urine Negative (Negative); Mucus,Urine Occasional /LPF (Occasional); Nitrite,Urine Negative (Negative); Protein,Urine Negative (Negative); RBC,Urine 2 /HPF (0-4); Squamous Epithelial Cell,Urine Occasional /HPF (0-10); Urine Appearance Clear (Clear); Urine Color Yellow (Yellow); Urine Urobilinogen 0.2 eU/dL (<2.0)
[2021-10-28] MEDS ORDERED: PANTOPRAZOLE 40 MG VIAL IV STA (16:45)
[2021-10-28] MEDS ORDERED: PROMETHAZINE 25 MG/1 ML VIAL IM PRN (19:09)
[2021-10-28] MEDS: SODIUM CHLORIDE 0.9% 1,000 ML IV SCH (19:37)
[2021-10-28] MEDS: ONDANSETRON 4 MG/2 ML VIAL IV PRN (19:37)
[2021-10-28] MEDS: PANTOPRAZOLE 40 MG VIAL IV SCH (21:31)
[2021-10-29 01:29] LABS: Hematocrit 32.4 VOL% (42.0-52.0); Hemoglobin 10.5 GM/DL (14.0-18.0)
[2021-10-29 07:03] LABS: Hematocrit 33.6 VOL% (42.0-52.0)
[2021-10-29 07:35] LABS: Albumin 2.7 G/DL (3.4-5.0); Bilirubin,Total 0.4 MG/DL (0.20-1.00); Calcium 9.2 MG/DL (8.5-10.1); Osmolality,Calculated 276.8 MOS/KG (273-304); Potassium 3.8 MMOL/L (3.5-5.1); Total Protein 6.3 G/DL (6.4-8.2)
[2021-10-29] MEDS: PANTOPRAZOLE 40 MG VIAL IV SCH ×2 (08:49→21:22)
[2021-10-29] MEDS ORDERED: ZINC OXIDE PASTE 113 GM TUBE TOP PRN (10:45)
[2021-10-29] MEDS: SODIUM CHLORIDE 0.9% 1,000 ML IV SCH (11:29)
[2021-10-29] MEDS: CARBIDOPA/LEVODOPA 25-100 MG TABLET PO SCH ×2 (12:03→17:32)
[2021-10-29] MEDS: ONDANSETRON 4 MG/2 ML VIAL IV PRN ×3 (12:03→21:22)
[2021-10-29 13:12] LABS: Hemoglobin 10.1 GM/DL (14.0-18.0)
[2021-10-29] MEDS ORDERED: ARIPiprazole 15 MG TABLET PO ONE (17:16)
[2021-10-29 19:35] LABS: Hematocrit 32.2 VOL% (42.0-52.0); Hemoglobin 10.3 GM/DL (14.0-18.0)
[2021-10-29] MEDS: ATORVASTATIN 20 MG TABLET PO SCH (21:22)
[2021-10-29] MEDS: MELATONIN 3 MG TABLET PO SCH (21:22)
[2021-10-29] MEDS: LACOSAMIDE 50 MG TABLET PO SCH (21:22)
[2021-10-30] MEDS: SODIUM CHLORIDE 0.9% 1,000 ML IV SCH ×3 (01:09→14:15)
[2021-10-30 05:39] LABS: Basophils % 0.4 % (0.0-0.8); Eosinophils # 0.1 10*3/uL (0.0-0.87); Eosinophils % 2.5 % (0.00-10.9); Hematocrit 29.6 VOL% (42.0-52.0); Hemoglobin 9.7 GM/DL (14.0-18.0); Immature Granulocytes % 0.4 %; Immature Granulocytes Absolute 0.02 #; Lymphocytes # 0.8 10*3/uL (1.4-4.0); Lymphocytes % 13.7 % (21.2-54.2); Mean Corpuscular HGB Conc 32.8 GM/DL (32-36); Mean Corpuscular Volume 97.4 FL (87-102); Mean Platelet Volume 8.5 FL (9.6-12.0); Monocytes # 0.4 10*3/uL (0.11-0.8); Monocytes % 7.1 % (1.7-12.7); Neutrophils % 75.9 % (38.7-73.9); Platelet Count 219 T/CUMM (130-400); Red Blood Count 3.04 MC/CUMM (3.8-5.5); Red Cell Distribution Width 14.5 % (9.3-17.3); White Blood Count 5.5 T/CUMM (4-12)
[2021-10-30 05:56] LABS: Calcium 8.6 MG/DL (8.5-10.1); Osmolality,Calculated 277.5 MOS/KG (273-304); Potassium 3.9 MMOL/L (3.5-5.1)
[2021-10-30] MEDS: ONDANSETRON 4 MG/2 ML VIAL IV PRN ×3 (06:24→17:10)
[2021-10-30] MEDS: CARBIDOPA/LEVODOPA 25-100 MG TABLET PO SCH ×3 (06:25→17:09)
[2021-10-30] MEDS ORDERED: ASPIRIN CHEW 81 MG TABLET PO SCH (09:00)
[2021-10-30] MEDS ORDERED: FLUORIDE 1.1% DENTAL SCH (09:00)
[2021-10-30] MEDS: LACOSAMIDE 50 MG TABLET PO SCH ×2 (09:42→21:12)
[2021-10-30] MEDS: BACILLUS COAGULANS CAPLET PO SCH (09:42)
[2021-10-30] MEDS: ARIPiprazole 15 MG TABLET PO SCH (09:42)
[2021-10-30] MEDS: MULTIVITAMIN (CENTRUM) TABLET PO SCH (09:42)
[2021-10-30] MEDS: lamoTRIgine 100 MG TABLET PO SCH (09:42)
[2021-10-30] MEDS: CHOLECALCIFEROL 5,000 UNIT TABLET PO SCH (09:42)
[2021-10-30] MEDS: MULTIVITAMIN (BEROCCA) TABLET PO SCH (09:42)
[2021-10-30] MEDS: COENZYME Q10 100 MG CAPSULE PO SCH (09:42)
[2021-10-30] MEDS: FLUTICASONE 50 MCG NASAL SPRAY 16 GM BOTTLE BOTH NARES SCH (09:43)
[2021-10-30] MEDS: POLYETHYLENE GLYCOL POWDER 17 GM PACK PO SCH (09:43)
[2021-10-30] MEDS: PANTOPRAZOLE 40 MG VIAL IV SCH ×2 (09:44→21:12)
[2021-10-30] MEDS: MELATONIN 3 MG TABLET PO SCH (21:12)
[2021-10-30] MEDS: ATORVASTATIN 20 MG TABLET PO SCH (21:12)
[2021-10-31] MEDS: SODIUM CHLORIDE 0.9% 1,000 ML IV SCH (04:35)
[2021-10-31 05:30] LABS: Basophils % 0.1 % (0.0-0.8); Eosinophils # 0.3 10*3/uL (0.0-0.87); Hematocrit 31.3 VOL% (42.0-52.0); Hemoglobin 10.3 GM/DL (14.0-18.0); Immature Granulocytes % 0.5 %; Immature Granulocytes Absolute 0.05 #; Lymphocytes # 0.6 10*3/uL (1.4-4.0); Lymphocytes % 5.6 % (21.2-54.2); Mean Corpuscular HGB Conc 32.9 GM/DL (32-36); Mean Corpuscular Volume 98.1 FL (87-102); Mean Platelet Volume 8.5 FL (9.6-12.0); Monocytes # 0.6 10*3/uL (0.11-0.8); Monocytes % 6.4 % (1.7-12.7); Neutrophils % 84.4 % (38.7-73.9); Platelet Count 222 T/CUMM (130-400); Red Blood Count 3.19 MC/CUMM (3.8-5.5); Red Cell Distribution Width 14.5 % (9.3-17.3); White Blood Count 9.8 T/CUMM (4-12)
[2021-10-31] MEDS: CARBIDOPA/LEVODOPA 25-100 MG TABLET PO SCH ×3 (06:22→17:13)
[2021-10-31] MEDS ORDERED: LACTATED RINGERS 1,000 ML IV SCH ×2 (08:00→10:30)
[2021-10-31] MEDS ORDERED: LIDOCAINE 2% 5 ML VIAL ONE ×2 (08:39→10:32)
[2021-10-31] MEDS ORDERED: propofoL 200 MG/20 ML VIAL IV ONE ×2 (08:39→10:32)
[2021-10-31] MEDS ORDERED: FLUCONAZOLE 200 MG TABLET PO ONE (10:00)
[2021-10-31] MEDS: ARIPiprazole 15 MG TABLET PO SCH (10:04)
[2021-10-31] MEDS: CHOLECALCIFEROL 5,000 UNIT TABLET PO SCH (10:04)
[2021-10-31] MEDS: POLYETHYLENE GLYCOL POWDER 17 GM PACK PO SCH (10:04)
[2021-10-31] MEDS: LACOSAMIDE 50 MG TABLET PO SCH ×2 (10:04→21:24)
[2021-10-31] MEDS: PANTOPRAZOLE 40 MG VIAL IV SCH ×2 (10:04→21:23)
[2021-10-31] MEDS: MULTIVITAMIN (BEROCCA) TABLET PO SCH (10:05)
[2021-10-31] MEDS: lamoTRIgine 100 MG TABLET PO SCH (10:05)
[2021-10-31] MEDS: MULTIVITAMIN (CENTRUM) TABLET PO SCH (10:05)
[2021-10-31] MEDS: COENZYME Q10 100 MG CAPSULE PO SCH (10:05)
[2021-10-31] MEDS: ASPIRIN EC 81 MG TABLET PO SCH (10:05)
[2021-10-31] MEDS: BACILLUS COAGULANS CAPLET PO SCH (10:05)
[2021-10-31] MEDS: FLUTICASONE 50 MCG NASAL SPRAY 16 GM BOTTLE BOTH NARES SCH (10:06)
[2021-10-31] MEDS: PIPERACILLIN/TAZOBACTAM 3,375 MG in SODIUM CHLORIDE 0.9% 100 ML IV SCH (17:14)
[2021-10-31] MEDS: ALBUTEROL/IPRATROPIUM 3 ML NEB RESP TX SCH ×2 (19:21→23:44)
[2021-10-31] MEDS: FLUCONAZOLE INJ 200 MG/100 ML PREMIX IV SCH (21:23)
[2021-10-31] MEDS: MELATONIN 3 MG TABLET PO SCH (21:24)
[2021-10-31] MEDS: ATORVASTATIN 20 MG TABLET PO SCH (21:24)
[2021-11-01] MEDS: PIPERACILLIN/TAZOBACTAM 3,375 MG in SODIUM CHLORIDE 0.9% 100 ML IV SCH (00:35)
[2021-11-01] MEDS: ALBUTEROL/IPRATROPIUM 3 ML NEB RESP TX SCH ×6 (03:42→23:55)
[2021-11-01 05:47] LABS: Basophils % 0.1 % (0.0-0.8); Eosinophils # 0.2 10*3/uL (0.0-0.87); Eosinophils % 2.3 % (0.00-10.9); Hematocrit 31.2 VOL% (42.0-52.0); Hemoglobin 10.2 GM/DL (14.0-18.0); Immature Granulocytes % 0.3 %; Immature Granulocytes Absolute 0.03 #; Lymphocytes # 0.8 10*3/uL (1.4-4.0); Lymphocytes % 8.6 % (21.2-54.2); Mean Corpuscular HGB Conc 32.7 GM/DL (32-36); Mean Corpuscular Volume 98.7 FL (87-102); Mean Platelet Volume 9.3 FL (9.6-12.0); Monocytes # 0.5 10*3/uL (0.11-0.8); Monocytes % 5.7 % (1.7-12.7); Platelet Count 202 T/CUMM (130-400); Red Blood Count 3.16 MC/CUMM (3.8-5.5); Red Cell Distribution Width 14.9 % (9.3-17.3); White Blood Count 9.4 T/CUMM (4-12)
[2021-11-01 07:43] LABS: Calcium 8.5 MG/DL (8.5-10.1); Osmolality,Calculated 279.5 MOS/KG (273-304); Potassium 3.4 MMOL/L (3.5-5.1)
[2021-11-01] MEDS ORDERED: FLUCONAZOLE 100 MG TABLET PO SCH (09:00)
[2021-11-01] MEDS: ARIPiprazole 15 MG TABLET PO SCH (10:16)
[2021-11-01] MEDS: ASPIRIN EC 81 MG TABLET PO SCH (10:16)
[2021-11-01] MEDS: CARBIDOPA/LEVODOPA 25-100 MG TABLET PO SCH ×3 (10:16→17:34)
[2021-11-01] MEDS: lamoTRIgine 100 MG TABLET PO SCH (10:17)
[2021-11-01] MEDS: MULTIVITAMIN (BEROCCA) TABLET PO SCH (10:17)
[2021-11-01] MEDS: POLYETHYLENE GLYCOL POWDER 17 GM PACK PO SCH (10:17)
[2021-11-01] MEDS: BACILLUS COAGULANS CAPLET PO SCH (10:17)
[2021-11-01] MEDS: MULTIVITAMIN (CENTRUM) TABLET PO SCH (10:17)
[2021-11-01] MEDS: COENZYME Q10 100 MG CAPSULE PO SCH (10:17)
[2021-11-01] MEDS: LACOSAMIDE 50 MG TABLET PO SCH ×2 (10:18→20:54)
[2021-11-01] MEDS: CHOLECALCIFEROL 5,000 UNIT TABLET PO SCH (10:18)
[2021-11-01] MEDS: FLUTICASONE 50 MCG NASAL SPRAY 16 GM BOTTLE BOTH NARES SCH (11:56)
[2021-11-01] MEDS: PANTOPRAZOLE 40 MG VIAL IV SCH ×2 (11:56→20:51)
[2021-11-01] MEDS: FLUCONAZOLE INJ 200 MG/100 ML PREMIX IV SCH (20:51)
[2021-11-01] MEDS: MELATONIN 3 MG TABLET PO SCH (20:54)
[2021-11-01] MEDS: ATORVASTATIN 20 MG TABLET PO SCH (20:55)
[2021-11-02] MEDS: ALBUTEROL/IPRATROPIUM 3 ML NEB RESP TX SCH ×6 (03:55→22:55)
[2021-11-02] MEDS: PIPERACILLIN/TAZOBACTAM 3,375 MG in SODIUM CHLORIDE 0.9% 100 ML IV SCH (08:03)
[2021-11-02] MEDS: lamoTRIgine 100 MG TABLET PO SCH (08:43)
[2021-11-02] MEDS: ARIPiprazole 15 MG TABLET PO SCH (08:43)
[2021-11-02] MEDS: COENZYME Q10 100 MG CAPSULE PO SCH (08:43)
[2021-11-02] MEDS: PANTOPRAZOLE 40 MG VIAL IV SCH ×2 (08:43→20:44)
[2021-11-02] MEDS: CHOLECALCIFEROL 5,000 UNIT TABLET PO SCH (08:43)
[2021-11-02] MEDS: BACILLUS COAGULANS CAPLET PO SCH (08:43)
[2021-11-02] MEDS: LACOSAMIDE 50 MG TABLET PO SCH ×2 (08:43→20:44)
[2021-11-02] MEDS: ASPIRIN EC 81 MG TABLET PO SCH (08:43)
[2021-11-02] MEDS: MULTIVITAMIN (CENTRUM) TABLET PO SCH (08:43)
[2021-11-02] MEDS: CARBIDOPA/LEVODOPA 25-100 MG TABLET PO SCH ×3 (08:43→18:08)
[2021-11-02] MEDS: MULTIVITAMIN (BEROCCA) TABLET PO SCH (08:44)
[2021-11-02] MEDS: POLYETHYLENE GLYCOL POWDER 17 GM PACK PO SCH (08:44)
[2021-11-02] MEDS: FLUTICASONE 50 MCG NASAL SPRAY 16 GM BOTTLE BOTH NARES SCH (08:56)
[2021-11-02] MEDS: MELATONIN 3 MG TABLET PO SCH (20:44)
[2021-11-02] MEDS: ATORVASTATIN 20 MG TABLET PO SCH (20:44)
[2021-11-02] MEDS: FLUCONAZOLE INJ 200 MG/100 ML PREMIX IV SCH (20:45)
[2021-11-03] MEDS: ALBUTEROL/IPRATROPIUM 3 ML NEB RESP TX SCH ×2 (03:35→07:17)
[2021-11-03 05:56] LABS: Basophils % 0.1 % (0.0-0.8); Eosinophils # 0.3 10*3/uL (0.0-0.87); Eosinophils % 3.9 % (0.00-10.9); Hematocrit 31.9 VOL% (42.0-52.0); Hemoglobin 10.3 GM/DL (14.0-18.0); Immature Granulocytes % 0.6 %; Immature Granulocytes Absolute 0.05 #; Lymphocytes # 0.6 10*3/uL (1.4-4.0); Lymphocytes % 6.8 % (21.2-54.2); Mean Corpuscular HGB Conc 32.3 GM/DL (32-36); Mean Corpuscular Volume 98.2 FL (87-102); Mean Platelet Volume 8.7 FL (9.6-12.0); Monocytes # 0.4 10*3/uL (0.11-0.8); Monocytes % 4.6 % (1.7-12.7); Platelet Count 183 T/CUMM (130-400); Red Blood Count 3.25 MC/CUMM (3.8-5.5); Red Cell Distribution Width 15.2 % (9.3-17.3); White Blood Count 8.5 T/CUMM (4-12)
[2021-11-03] MEDS: CARBIDOPA/LEVODOPA 25-100 MG TABLET PO SCH (06:11)
[2021-11-03] MEDS: CHOLECALCIFEROL 5,000 UNIT TABLET PO SCH (09:56)
[2021-11-03] MEDS: MULTIVITAMIN (BEROCCA) TABLET PO SCH (09:57)
[2021-11-03] MEDS: COENZYME Q10 100 MG CAPSULE PO SCH (09:57)
[2021-11-03] MEDS: POLYETHYLENE GLYCOL POWDER 17 GM PACK PO SCH (09:57)
[2021-11-03] MEDS: ASPIRIN EC 81 MG TABLET PO SCH (09:57)
[2021-11-03] MEDS: MULTIVITAMIN (CENTRUM) TABLET PO SCH (09:57)
[2021-11-03] MEDS: LACOSAMIDE 50 MG TABLET PO SCH (09:57)
[2021-11-03] MEDS: BACILLUS COAGULANS CAPLET PO SCH (09:57)
[2021-11-03] MEDS: FLUTICASONE 50 MCG NASAL SPRAY 16 GM BOTTLE BOTH NARES SCH (09:58)
[2021-11-03] MEDS: PANTOPRAZOLE 40 MG VIAL IV SCH (09:58)
[2021-11-03] MEDS: lamoTRIgine 100 MG TABLET PO SCH (10:04)
[2021-11-03] MEDS: ARIPiprazole 15 MG TABLET PO SCH (10:05)
[2021-11-03 11:31] VITALS: BP 100/58
== END 2021-11-03 11:35 | disposition swing bed (61) | DRG 368 ==
LOC: N.ED 14:09 → N.EDINP 14:09 → SUATTDRO 18:23 → N.3E 20:35
PROVIDERS: ADMIT Hospitalist; ATTEND Internal Medicine
PROC: EGDWPEG (ICD-10-PCS; 2021-10-31 11:05)